=== PATIENT | male | born 1960 | race Caucasian/White ===

== ENCOUNTER 2019-12-18 12:52 | Inpatient (IN) | payer MEDICAID ==
[2019-12-18] MEDS ORDERED: Ondansetron 4 MG/2 ML SDV IVPUSH ONE (13:23)
[2019-12-18] MEDS ORDERED: HYDROmorphone 1 MG/ML Syringe IVPUSH ONE (13:23)
[2019-12-18] MEDS ORDERED: Sodium Chloride 0.9% 1,000 ML IV SCH (13:30)
[2019-12-18] MEDS ORDERED: fentaNYL 100 MCG/2 ML SDV IVPUSH ONE ×2 (13:53→15:00)
[2019-12-18] MEDS ORDERED: Sodium Chloride 0.9% 10 ML Syringe FLUSH ONE (13:55)
[2019-12-18] MEDS ORDERED: Iopamidol 612 MG/ML 500 ML Multipack Bottle IV ONE (13:55)
[2019-12-18] MEDS ORDERED: Sodium Chloride 0.9% 100 ML IV SCH (14:00)
--- NOTE | 2019-12-18 14:02 | EDM.PDOC ---
ED HPI GENERAL MEDICAL PROBLEM - General Chief Complaint: Abdominal Pain Stated Complaint: STOMACH PAIN Time Seen by Provider: 12/18/19 13:15 Source of Information: Reports: Patient History Limitations: Reports: No Limitations - History of Present Illness INITIAL COMMENTS - FREE TEXT/NARRATIVE: 59-year-old male without any previous medical problems, developed diffuse abdominal pain seemingly centered in the middle became very severe over the course of 1 to 2 hours. He now has a rigid abdomen, cannot tolerate any movement and has nausea but no vomiting. No previous history of abdominal surgeries. No recent trauma. Pain does not radiate to the back or chest. Onset: Gradual Duration: Hour(s): (5 hours) Location: Reports: Abdomen Associated Symptoms: Denies: Chest Pain, Cough, Loss of Appetite, Nausea/Vomiting, Shortness of Breath, Weakness Abdominal Pain Score (Numeric/FACES): 2 - Related Data Allergies Allergy/AdvReac Type Severity Reaction Status Date / Time No Known Allergies Allergy Verified 12/18/19 13:18 Home Meds: Home Meds atorvaSTATin [Lipitor] 20 mg PO BEDTIME 12/18/19 [History] Past Medical History Cardiovascular History: Reports: Afib, Stents - Infectious Disease History Infectious Disease History: Reports: Chicken Pox Social & Family History - Tobacco Use Tobacco Use Status *Q: Current Every Day Tobacco User Years of Tobacco use: 40 Packs/Tins Daily: 1 - Caffeine Use Caffeine Use: Reports: Coffee - Recreational Drug Use Recreational Drug Use: No ED ROS GENERAL - Review of Systems Review Of Systems: See Below Constitutional: Reports: Malaise, Decreased Appetite. Denies: Fever, Chills HEENT: Reports: No Symptoms Respiratory: Denies: Shortness of Breath, Pleuritic Chest Pain Cardiovascular: Denies: Chest Pain GI/Abdominal: Reports: Abdominal Pain, Nausea. Denies: Constipation, Diarrhea, Vomiting Skin: Reports: No Symptoms Neurological: Reports: No Symptoms Psychiatric: Reports: No Symptoms ED EXAM, GI/ABD - Physical Exam Exam: See Below Exam Limited By: No Limitations General Appearance: Alert, Moderate Distress Eyes: Bilateral: Normal Appearance Head: Atraumatic Respiratory/Chest: Lungs Clear Cardiovascular: Regular Rate, Rhythm GI/Abdominal Exam: Guarding, Rigid, Rebound, Tender, Other (Quiet bowel sounds) Extremities: Normal Inspection Neurological: Alert, Oriented Psychiatric: Anxious Skin Exam: Warm, Dry Course - Vital Signs Last Recorded V/S: Last Vital Signs Temp 97 F 12/19/19 07:17 Pulse 76 12/19/19 07:17 Resp 10 L 12/19/19 07:17 BP 128/64 12/19/19 07:17 Pulse Ox 94 L 12/19/19 07:21 - Orders/Labs/Meds Orders: Active Orders 24 hr Category Date Time Status CULTURE ANAEROBIC [RM] Routine Lab 12/18/19 16:48 Results CULTURE WOUND + SMEAR [RM] Routine Lab 12/18/19 16:48 Results Medication Orders Cyclobenzaprine HCl (Flexeril) 10 mg PO Q6H PRN PRN Reason: Muscle Spasm Hydromorphone HCl (Dilaudid Drug Safety Data Management Specialist 15 Mg In Ns 30 Ml) 0 mg IV ASDIRECTED PRN; Protocol PRN Reason: TABLE GAMES SHIFT MANAGER PAIN CONTROL Hydroxyzine HCl (Vistaril) 100 mg IM Q4H PRN PRN Reason: Pain Dextrose/Lactated Ringer's (Dextrose 5%-Lactated Ringers) 1,000 mls @ 200 mls/hr IV ASDIRECTED [facility] Last Admin: 12/18/19 23:44 Dose: 200 mls/hr Documented by: Infusion: 12/18/19 23:44 Dose: 200 mls/hr Documented by: Admin: 12/18/19 19:15 Dose: 200 mls/hr Documented by: CHANTALE Aztreonam 1 gm/ Sodium (Chloride) 50 mls @ 100 mls/hr IV Q8H [facility] Last Admin: 12/18/19 23:44 Dose: 100 mls/hr Documented by: OZ Meropenem 500 mg/ Sodium (Chloride) 50 mls @ 100 mls/hr IV Q6H [facility] Last Admin: 12/19/19 05:12 Dose: 100 mls/hr Documented by: Admin: 12/18/19 23:43 Dose: 100 mls/hr Documented by: OZ Dextrose/Lactated Ringer's (Dextrose 5%-Lactated Ringers) 1,000 mls @ 100 mls/hr IV ASDIRECTED [facility] Naloxone HCl (Narcan) 0.1 mg IV ASDIRECTED PRN PRN Reason: decreased respiratory rate Non-Formulary Medication (Tap Block, Pharmacy To Dose) 0 ml NERVRT ONCALL [facility] Pantoprazole Sodium (Protonix Iv) 40 mg IVPUSH Q24H [facility] Last Admin: 12/18/19 20:53 Dose: 40 mg Documented by: CHANTALE Tamsulosin HCl (Flomax) 0.4 mg PO BEDTIME [facility] Last Admin: 12/18/19 20:53 Dose: 0.4 mg Documented by: CHANTALE Labs: Laboratory Tests 12/18/19 12/18/19 12/18/19 Range/Units 13:34 13:34 13:34 WBC 8.8 (4.5-11.0) K/uL RBC 4.85 (4.30-5.90) M/uL Hgb 14.3 (12.0-15.0) g/dL Hct 44.4 (40.0-54.0) % MCV 92 (80-98) fL MCH 30 (27-31) pg MCHC 32 (32-36) % Plt Count 247 (150-400) K/uL Neut % (Auto) 89 H (36-66) % Lymph % (Auto) 6 L (24-44) % Cochran % (Auto) 4 (2-6) % Eos % (Auto) 0 L (2-4) % Baso % (Auto) 0 (0-1) % Sodium 136 L (140-148) mmol/L Potassium 4.0 (3.6-5.2) mmol/L Chloride 99 L (100-108) mmol/L Carbon Dioxide 27 (21-32) mmol/L Anion Gap 14.0 (5.0-14.0) mmol/L BUN 12 (7-18) mg/dL Creatinine 0.8 (0.8-1.3) mg/dL Est Cr Clr Drug Dosing 109.59 mL/min Estimated GFR (MDRD) > 60 (>60) Glucose 129 H (74-106) mg/dL Lactic Acid 1.1 (0.4-2.0) mmol/L Calcium 8.9 (8.5-10.1) mg/dL Total Bilirubin 0.8 (0.2-1.0) mg/dL AST 35 (15-37) U/L ALT 40 (12-78) U/L Alkaline Phosphatase 119 H (46-116) U/L Total Protein 7.4 (6.4-8.2) g/dL Albumin 3.7 (3.4-5.0) g/dL Globulin 3.7 H (2.3-3.5) g/dL Albumin/Globulin Ratio 1.0 L (1.2-2.2) Lipase 49 L (73-393) U/L SARS-CoV-2 RNA (HAIM) (NEGATIVE) 12/18/19 Range/Units 14:43 WBC (4.5-11.0) K/uL RBC (4.30-5.90) M/uL Hgb (12.0-15.0) g/dL Hct (40.0-54.0) % MCV (80-98) fL MCH (27-31) pg MCHC (32-36) % Plt Count (150-400) K/uL Neut % (Auto) (36-66) % Lymph % (Auto) (24-44) % Cochran % (Auto) (2-6) % Eos % (Auto) (2-4) % Baso % (Auto) (0-1) % Sodium (140-148) mmol/L Potassium (3.6-5.2) mmol/L Chloride (100-108) mmol/L Carbon Dioxide (21-32) mmol/L Anion Gap (5.0-14.0) mmol/L BUN (7-18) mg/dL Creatinine (0.8-1.3) mg/dL Est Cr Clr Drug Dosing mL/min Estimated GFR (MDRD) (>60) Glucose (74-106) mg/dL Lactic Acid (0.4-2.0) mmol/L Calcium (8.5-10.1) mg/dL Total Bilirubin (0.2-1.0) mg/dL AST (15-37) U/L ALT (12-78) U/L Alkaline Phosphatase (46-116) U/L Total Protein (6.4-8.2) g/dL Albumin (3.4-5.0) g/dL Globulin (2.3-3.5) g/dL Albumin/Globulin Ratio (1.2-2.2) Lipase (73-393) U/L SARS-CoV-2 RNA (HAIM) Negative (NEGATIVE) Meds: Medications Generic Name Dose Route Start Last Admin Trade Name Freq PRN Reason Stop Dose Admin Cyclobenzaprine HCl 10 mg 12/18/19 19:20 Flexeril PO Q6H PRN Muscle Spasm Hydromorphone HCl 0 mg 12/19/19 04:45 Dilaudid Drug Safety Data Management Specialist 15 Mg In Ns 30 Ml IV ASDIRECTED PRN TABLE G[employer] SHIFT MANAGER PAIN CONTROL Protocol Hydroxyzine HCl 100 mg 12/18/19 19:19 Vistaril IM Q4H PRN Pain Dextrose/Lactated Ringer's 1,000 mls @ 200 mls/hr 12/18/19 19:30 12/18/19 23:44 Dextrose 5%-Lactated Ringers IV 200 mls/hr ASDIRECTED [facility] Administration Aztreonam 1 gm/ Sodium 50 mls @ 100 mls/hr 12/18/19 23:30 12/18/19 23:44 Chloride IV 100 mls/hr Q8H [facility] Administration Meropenem 500 mg/ Sodium 50 mls @ 100 mls/hr 12/18/19 23:00 12/19/19 05:12 Chloride IV 100 mls/hr Q6H [facility] Administration Dextrose/Lactated Ringer's 1,000 mls @ 100 mls/hr 12/19/19 07:15 Dextrose 5%-Lactated Ringers IV ASDIRECTED [facility] Naloxone HCl 0.1 mg 12/19/19 05:00 Narcan IV ASDIRECTED PRN decreased respiratory rate Non-Formulary Medication 0 ml 12/21/19 07:15 Tap Block, Pharmacy To Dose NERVRT ONCALL [facility] Pantoprazole Sodium 40 mg 12/18/19 19:30 12/18/19 20:53 Protonix Iv IVPUSH 40 mg Q24H [facility] Administration Tamsulosin HCl 0.4 mg 12/18/19 21:00 12/18/19 20:53 Flomax PO 0.4 mg BEDTIME [facility] Administration Discontinued Medications Generic Name Dose Route Start Last Admin Trade Name Freq PRN Reason Stop Dose Admin Ampicillin Sodium/Sulbactam Sodium Confirm 12/18/19 17:48 12/18/19 19:26 Unasyn Administered 12/18/19 17:49 3 gm Dose Administration 3 gm .ROUTE .STK-MED ONE Ropivacaine 42 ml/ 0 ml 12/18/19 16:00 12/18/19 16:48 Dexamethasone 8 mg/ NERVRT 80 syringe Epinephrine HCl 0.4 mg/ Sodium ASDIRECTED [facility] Administration Chloride 35.6 ml Dexamethasone Confirm 12/18/19 15:39 Dexamethasone Administered 12/18/19 15:40 Dose 4 mg .ROUTE .STK-MED ONE Fentanyl 100 mcg 12/18/19 13:53 12/18/19 13:59 Sublimaze IVPUSH 12/18/19 13:54 100 mcg ONETIME ONE Administration Fentanyl 100 mcg 12/18/19 15:00 12/18/19 15:11 Sublimaze IVPUSH 12/18/19 15:01 100 mcg ONETIME ONE Administration Fentanyl Confirm 12/18/19 15:41 Sublimaze Administered 12/18/19 15:42 Dose 250 mcg .ROUTE .STK-MED ONE Fentanyl Confirm 12/18/19 16:24 Sublimaze Administered 12/18/19 16:25 Dose 250 mcg .ROUTE .STK-MED ONE Fentanyl Confirm 12/18/19 16:24 Sublimaze Administered 12/18/19 16:25 Dose 250 mcg .ROUTE .STK-MED ONE Glycopyrrolate Confirm 12/18/19 15:39 Robinul Administered 12/18/19 15:40 Dose 1 mg .ROUTE .STK-MED ONE Hydromorphone HCl 1 mg 12/18/19 13:23 12/18/19 13:29 Dilaudid IVPUSH 12/18/19 13:24 1 mg ONETIME ONE Administration Hydromorphone HCl 0 mg 12/18/19 15:33 12/18/19 19:15 Dilaudid Drug Safety Data Management Specialist 15 Mg In Ns 30 Ml IV 15 mg ASDIRECTED PRN Administration TABLE GAMES SHIFT MANAGER PAIN CONTROL Protocol Hydroxyzine HCl 100 mg 12/18/19 17:54 12/18/19 18:29 Vistaril IM 12/18/19 17:55 100 mg ONETIME ONE Administration Sodium Chloride 1,000 mls @ 1,000 mls/hr 12/18/19 13:30 12/18/19 13:35 Normal Saline IV 1,000 mls/hr ASDIRECTED [facility] Administration Sodium Chloride 100 mls @ 3 mls/sec 12/18/19 14:00 12/18/19 14:35 Normal Saline IV 3 mls/sec ASDIRECTED [facility] Administration Cefoxitin Sodium 2 gm/ Sodium 50 mls @ 100 mls/hr 12/18/19 15:09 12/18/19 15:37 Chloride IV 12/18/19 15:38 100 mls/hr ONETIME ONE Administration Ketamine HCl 50 mg/ Sodium 50 mls @ 23.97 mls/hr 12/18/19 16:00 Chloride IV ASDIRECTED [facility] 5 MCG/KG/MIN Aztreonam 1 gm/ Sodium 50 mls @ 100 mls/hr 12/18/19 15:30 12/18/19 15:38 Chloride IV 12/18/19 15:59 100 mls/hr ONETIME ONE Administration Lactated Ringer's 1,000 mls @ 250 mls/hr 12/18/19 15:45 12/18/19 15:38 Ringers, Lactated IV 250 mls/hr ASDIRECTED [facility] Administration Lactated Ringer's Confirm 12/18/19 16:44 Ringers, Lactated Administered 12/18/19 16:45 Dose 1,000 mls @ as directed .ROUTE .STK-MED ONE Sodium Chloride Confirm 12/18/19 18:26 Normal Saline Administered 12/18/19 18:27 Dose 10 mls @ as directed .ROUTE .STK-MED ONE Iopamidol 500 ml 12/18/19 13:55 12/18/19 14:35 Isovue-300 (61%) IV 12/18/19 13:56 110 ml ONETIME ONE Administration Ketamine HCl 40 mg 12/18/19 16:00 Ketalar IV ASDIRECTED [facility] Meropenem Confirm 12/18/19 15:59 12/18/19 19:28 Merrem Administered 12/18/19 16:00 2,500 mg Dose Administration 500 mg .ROUTE .STK-MED ONE Meropenem Confirm 12/18/19 16:51 Merrem Administered 12/18/19 16:52 Dose 1,500 mg .ROUTE .STK-MED ONE Meropenem Confirm 12/18/19 16:59 Merrem Administered 12/18/19 17:00 Dose 500 mg .ROUTE .STK-MED ONE Meropenem Confirm 12/18/19 18:26 Merrem Administered 12/18/19 18:27 Dose 500 mg .ROUTE .STK-MED ONE Naloxone HCl 0.1 mg 12/18/19 16:00 Narcan IV ASDIRECTED PRN decreased respiratory rate Neostigmine Methylsulfate Confirm 12/18/19 15:39 Neostigmine Administered 12/18/19 15:40 Dose 5 mg .ROUTE .STK-MED ONE Ondansetron HCl 4 mg 12/18/19 13:23 12/18/19 13:29 Zofran IVPUSH 12/18/19 13:24 4 mg ONETIME ONE Administration Ondansetron HCl Confirm 12/18/19 15:39 Zofran Administered 12/18/19 15:40 Dose 4 mg .ROUTE .STK-MED ONE Propofol Confirm 12/18/19 15:39 Diprivan 20 Ml Administered 12/18/19 15:40 Dose 200 mg .ROUTE .STK-MED ONE Rocuronium Keystone Confirm 12/18/19 15:39 Zemuron Administered 12/18/19 15:40 Dose 50 mg .ROUTE .STK-MED ONE Rocuronium Keystone Confirm 12/18/19 17:22 Zemuron Administered 12/18/19 17:23 Dose 50 mg .ROUTE .STK-MED ONE Sodium Chloride 10 ml 12/18/19 13:55 12/18/19 14:35 Saline Flush FLUSH 12/18/19 13:56 10 ml ONETIME ONE Administration Succinylcholine Chloride Confirm 12/18/19 15:39 Quelicin Administered 12/18/19 15:40 Dose 200 mg .ROUTE .STK-MED ONE - Re-Assessments/Exams Free Text/Narrative Re-Assessment/Exam: 12/18/19 14:01 IV was started, patient was given a full milligram of Dilaudid IV and normal saline started. CBC, CMP and lactic acid along with lipase were obtained and as soon as we have creatinine clearance, an IV contrast-enhanced abdominal CT will be obtained. An additional 100 mcg of fentanyl were needed pain control, CBC returned normal. 12/18/19 15:21 Lactic acid was 1.1, normal, CMP relatively normal. Covid test was negative so patient was prepared for surgery. CT confirmed free peritoneal air. Source of perforation was not clear. Departure - Departure Time of Disposition: 16:13 Disposition: Admitted As Inpatient 64 Clinical Impression: Peritoneal free air Abdominal pain Qualifiers: Abdominal location: generalized Qualified Code(s): R10.84 - Generalized abdominal pain - Discharge Information Sepsis Event Note (ED) - Evaluation Sepsis Screening Result: Possible Sepsis Risk
[2019-12-18] MEDS ORDERED: Dexamethasone 4 MG/ML SDV IVPUSH ONE (14:18)
[2019-12-18] MEDS ORDERED: cefOXitin 2 GM in Sodium Chloride 0.9% 50 ML IV ONE (15:09)
--- NOTE | 2019-12-18 15:13 | CT ---
Abdomen Pelvis w Cont CLINICAL HISTORY: Abdominal pain COMPARISON: None. TECHNIQUE: Axial tomographic images are obtained from the dome of the diaphragm to the pubic symphysis without IV contrast enhancement. No oral contrast was used. Auto dosage reduction and iterative reconstruction techniques employed. FINDINGS: There is a small amount of free intraperitoneal air epigastric region. There is diffuse small bowel thickening and wall enhancement in the left abdomen which appears to be jejunum and proximal ileum there is some mild prominence of gastric mucosa. Patient has a moderate-sized hiatal hernia. There is moderate diverticulosis. There is moderate thickening of the sigmoid colon and some stranding in the pericolic fat just and diverticulitis The lung bases are clear. The liver shows no mass or biliary dilatation. The gallbladder has a normal contour. The spleen has a normal size and shape. The pancreas shows no mass or inflammatory change. The adrenal glands appear normal bilaterally. The kidneys show some cysts bilaterally largest on the left measures 2.4 x 2.8 cm. The aorta shows diffuse atheromatous changes with mid to distal ectasia. Maximum AP diameter is 2.7 cm. There is no suspicious retroperitoneal adenopathy. IMPRESSION: There is a small amount of free intraperitoneal air stippled throughout the abdominal cavity. There is also some free fluid in the mesentery recesses Diffuse the small bowel enteritis Severe diverticulosis with thickening and. There is pericolic stranding in the proximal sigmoid consistent with diverticulitis. There are some small intraperitoneal air collections in the abdominal pelvic junction region which suggests the diverticular perforation.
[2019-12-18] MEDS ORDERED: HYDROmorphone/Normal Saline 15 MG/30 ML PCA IV PRN (15:33)
[2019-12-18] MEDS ORDERED: Dexamethasone 4 MG/ML SDV ONE (15:39)
[2019-12-18] MEDS ORDERED: Glycopyrrolate 0.2 MG/ML 5 ML MDV ONE (15:39)
[2019-12-18] MEDS ORDERED: Propofol 200 MG/20 ML SDV ONE (15:39)
[2019-12-18] MEDS ORDERED: Ondansetron 4 MG/2 ML SDV ONE (15:39)
[2019-12-18] MEDS ORDERED: Succinylcholine 200 MG/10 ML MDV ONE (15:39)
[2019-12-18] MEDS ORDERED: Neostigmine Methylsulfate 1 MG/ML 5 ML Syringe ONE (15:39)
[2019-12-18] MEDS ORDERED: Rocuronium 50 MG/5 ML Vial ONE ×2 (15:39→17:22)
[2019-12-18] MEDS ORDERED: fentaNYL 250 MCG/5 ML SDV ONE ×3 (15:41→16:24)
[2019-12-18] MEDS ORDERED: Lactated Ringers 1,000 ML IV SCH (15:45)
[2019-12-18] MEDS ORDERED: Meropenem 500 MG SDV ONE ×4 (15:59→18:26)
[2019-12-18] MEDS ORDERED: Ketamine 50 MG in Sodium Chloride 0.9% 49.5 ML IV SCH (16:00)
[2019-12-18] MEDS ORDERED: Ketamine 500 MG/5 ML MDV IV SCH (16:00)
[2019-12-18] MEDS ORDERED: Naloxone 0.4 MG/ML SDV IV PRN (16:00)
[2019-12-18] MEDS ORDERED: Lactated Ringers 1,000 ML ONE (16:44)
[2019-12-18] MEDS ORDERED: Ampicillin/Sulbactam Na 3 GM Vial ONE (17:48)
[2019-12-18] MEDS ORDERED: hydrOXYzine HCL 100 MG/2 ML SDV IM ONE (17:54)
[2019-12-18] MEDS ORDERED: Sodium Chloride 0.9% 10 ML ONE (18:26)
[2019-12-18] MEDS: Dextrose 5%-Lactated Ringers 1,000 ML IV SCH ×2 (19:15→23:44)
[2019-12-18] MEDS ORDERED: hydrOXYzine HCL 100 MG/2 ML SDV IM PRN (19:19)
[2019-12-18] MEDS: Pantoprazole 40 MG Vial IVPUSH SCH (20:53)
[2019-12-18] MEDS: Tamsulosin 0.4 MG Cap.ER PO SCH (20:53)
[2019-12-18] MEDS: Meropenem 500 MG in Sodium Chloride 0.9% 50 ML IV SCH (23:43)
[2019-12-19] MEDS ORDERED: HYDROmorphone/Normal Saline 15 MG/30 ML PCA IV PRN (04:45)
[2019-12-19] MEDS ORDERED: Naloxone 0.4 MG/ML SDV IV PRN (05:00)
[2019-12-19] MEDS: Meropenem 500 MG in Sodium Chloride 0.9% 50 ML IV SCH ×4 (05:12→23:13)
[2019-12-19] MEDS: Dextrose 5%-Lactated Ringers 1,000 ML IV SCH (13:55)
[2019-12-19] MEDS: Cyclobenzaprine 10 MG Tab PO PRN (14:59)
[2019-12-19] MEDS: Pantoprazole 40 MG Vial IVPUSH SCH (20:11)
[2019-12-19] MEDS: Tamsulosin 0.4 MG Cap.ER PO SCH (20:12)
[2019-12-20] MEDS: Dextrose 5%-Lactated Ringers 1,000 ML IV SCH ×2 (02:34→15:18)
[2019-12-20] MEDS: Cyclobenzaprine 10 MG Tab PO PRN ×3 (02:48→21:21)
[2019-12-20] MEDS: Meropenem 500 MG in Sodium Chloride 0.9% 50 ML IV SCH ×4 (05:56→23:29)
--- NOTE | 2019-12-20 07:52 | PN ---
CORRECTED REPORT DATE OF SERVICE: 12/19/2019 SUBJECTIVE: Patrick is postop day 1. He reports his pain is controlled. Vital signs have been stable. Oral intake was just chips. Urine output 2390, JESSE drain put out 60, 60, and 110 respectively, and NG put out 0 mL. He has no questions or concerns. REVIEW OF SYSTEMS: Remainder of review of systems negative for any pertinent positives and negatives. OBJECTIVE: GENERAL: Patrick Ellis is a 59-year-old male. He is sitting up in bed. NG in place. VITAL SIGNS: TPR 97, 76, 10; blood pressure is 128/64. HEENT: Negative. NECK: Supple. HEART: Regular rate and rhythm. LUNGS: Clear. ABDOMEN: Dressings dry and intact. JESSE drains x3 intact. EXTREMITIES: Without peripheral edema. ASSESSMENT: 1. Exploratory laparotomy with extensive peritoneal washout. a. Rectosigmoid resection with coloproctostomy. b. Drainage of pelvic abscess. c. Excision of pelvic peritoneal implant. d. Mobilization of the omentum into pelvis. POSTOPERATIVE DIAGNOSES: 1. Sigmoid colon diverticulitis with free perforation and diffuse feculent peritonitis. 2. Pelvic abscess. 3. Pelvic peritoneal implant, 2 mm. Date of surgery: 12/18/2019. Surgeon: Flex Pan MD. PLAN: 1. Decrease IV to 100 mL per hour. 2. Discontinue NG tube. 3. Schedule and have consent signed for delayed primary closure, 12/21/2019 at 0715. IV local TAP block. Flex Pan MD. N.p.o. after midnight. 4. Continue ambulation and use of incentive spirometer. 5. We will evaluate p.r.n. or in a.m. Shanta Cantrell PA-C /[id number] CHERI
--- NOTE | 2019-12-20 11:39 | PN ---
DATE OF SERVICE: 12/20/2019 SUBJECTIVE: Patrick states his pain has been controlled. Vital signs have been stable. He has ambulated a couple of times. Oral intake is only ice chips at 2:40. Urine output via Franz catheter of 2550. JESSE drains have put out 120 and 50 respectively, and he did have a bowel movement. REVIEW OF SYSTEMS: Remainder of review of systems is negative for any pertinent positives or negatives. OBJECTIVE: GENERAL: Patrick is a pleasant 59-year-old male. VITAL SIGNS: TPR is 98.3, 86, 18, and blood pressure 146/74. HEENT: Negative. NECK: Supple. HEART: Regular rate and rhythm. LUNGS: Clear. ABDOMEN: Dressing is dry and intact. JESSE drains as above. EXTREMITIES: Without peripheral edema. ASSESSMENT: Exploratory laparotomy with extensive peritoneal washout; 1. Rectosigmoid resection with coloproctostomy. 2. Drainage of pelvic abscess. 3. Excision of pelvic peritoneal implant. 4. Mobilization of the omentum into pelvis. POSTOPERATIVE DIAGNOSES: 1. Sigmoid colon diverticulitis with free perforation and diffuse feculent peritonitis. 2. Pelvic abscess. 3. Pelvic peritoneal implant, 2 mm. DATE OF SURGERY: 12/18/2019. SURGEON: Flex Pan MD. PLAN: 1. Continue to work on pulmonary incentive spirometer. 2. Ambulate 6 times short distances. 3. N.p.o. after midnight for delayed primary closure. Orders already written. 4. We will evaluate p.r.n. or in the a.m. Shanta Cantrell PA-C /[id number]
[2019-12-20] MEDS: Pantoprazole 40 MG Vial IVPUSH SCH (19:29)
[2019-12-20] MEDS: Tamsulosin 0.4 MG Cap.ER PO SCH (21:19)
[2019-12-21] MEDS: Dextrose 5%-Lactated Ringers 1,000 ML IV SCH ×3 (03:32→23:06)
[2019-12-21] MEDS: Meropenem 500 MG in Sodium Chloride 0.9% 50 ML IV SCH ×4 (05:03→23:02)
[2019-12-21] MEDS ORDERED: Lidocaine 1% with EPINEPHrine 1:100,000 50 ML MDV ONE (06:44)
[2019-12-21] MEDS ORDERED: Bupivacaine 0.5% 50 ML MDV ONE (06:44)
[2019-12-21] MEDS ORDERED: Meropenem 500 MG SDV ONE (06:44)
[2019-12-21] MEDS ORDERED: fentaNYL 100 MCG/2 ML SDV ONE (07:16)
[2019-12-21] MEDS ORDERED: Propofol 200 MG/20 ML SDV ONE ×2 (07:16→07:50)
[2019-12-21] MEDS ORDERED: Furosemide 40 MG/4 ML VIAL IV ONE (08:45)
[2019-12-21] MEDS: Docusate Sodium 100 MG Cap PO SCH ×2 (09:59→20:59)
[2019-12-21] MEDS: Bisacodyl 5 MG Tab PO SCH ×2 (10:00→21:00)
[2019-12-21] MEDS: Cyclobenzaprine 10 MG Tab PO PRN (12:49)
[2019-12-21] MEDS: Magnesium Hydroxide 400 MG/5 ML Susp 30 ML Cup PO SCH ×2 (12:50→21:00)
[2019-12-21] MEDS: Pantoprazole 40 MG Vial IVPUSH SCH (18:54)
[2019-12-21] MEDS: Tamsulosin 0.4 MG Cap.ER PO SCH (20:59)
[2019-12-22] MEDS: Meropenem 500 MG in Sodium Chloride 0.9% 50 ML IV SCH ×4 (05:01→23:05)
[2019-12-22] MEDS: Acetaminophen 500 MG Tab PO SCH ×3 (09:40→21:37)
[2019-12-22] MEDS: Magnesium Hydroxide 400 MG/5 ML Susp 30 ML Cup PO SCH ×2 (09:40→21:36)
[2019-12-22] MEDS: Docusate Sodium 100 MG Cap PO SCH ×2 (09:40→21:36)
[2019-12-22] MEDS: Bisacodyl 5 MG Tab PO SCH ×2 (09:41→21:36)
--- NOTE | 2019-12-22 11:00 | PN ---
DATE OF SERVICE: 12/21/2019 The patient has been afebrile with stable vital signs. Oxygenation remains good. The patient had no nausea. He underwent a closure of the abdominal incision and Franz catheter was then taken out. The patient is already on Flomax, so he will be able to urinate satisfactorily. We will continue with clear liquid diet today. Cultures were growing Strep viridans, which would be sensitive to meropenem and E coli which is sensitive to both meropenem and Azactam, so continue the present antibiotics. Advised to maximize activity and work with pulmonary toilet and begin some bowel stimulation today. Flex Pna MD /[id number]
--- NOTE | 2019-12-22 13:24 | PN ---
DATE OF SERVICE: 12/22/2019 The patient has been afebrile with stable vital signs. Urine output has been satisfactory. No bowel movement or flatus. Again, we will continue the bowel stimulation. If he does move his bowels, we will move up to a more regular diet and oral pain medication. Otherwise, maximize activity and work with pulmonary toilet. We will continue present antibiotics based on the sensitivities on the cultures. Flex Pan MD /[id number]
[2019-12-22] MEDS ORDERED: oxyCODONE 5 MG Tab PO PRN (13:40)
[2019-12-22] MEDS ORDERED: Pantoprazole 40 MG Tab.CR PO SCH (16:30)
[2019-12-22] MEDS: Tamsulosin 0.4 MG Cap.ER PO SCH (21:35)
[2019-12-23] MEDS: Acetaminophen 500 MG Tab PO SCH ×2 (02:54→08:02)
[2019-12-23] MEDS: Meropenem 500 MG in Sodium Chloride 0.9% 50 ML IV SCH (05:09)
[2019-12-23] MEDS: Docusate Sodium 100 MG Cap PO SCH (08:02)
[2019-12-23] MEDS: Bisacodyl 5 MG Tab PO SCH (08:03)
[2019-12-23] MEDS: Magnesium Hydroxide 400 MG/5 ML Susp 30 ML Cup PO SCH (08:03)
--- NOTE | 2019-12-23 13:28 | DISCH ---
ADMISSION DIAGNOSES: 1. Abdominal pain. 2. Hypercholesterolemia. 3. Atrial fibrillation with stents. 4. Nicotine addiction. DISCHARGE DIAGNOSES: 1. Exploratory laparotomy with extensive peritoneal washout. 2. Rectosigmoid resection with coloproctostomy. 3. Drainage of pelvic abscess. 4. Excision of peritoneal implant. 5. Mobilization of omentum into pelvis. POSTOPERATIVE DIAGNOSES: 1. Sigmoid colon diverticulitis with free perforation and diffuse feculent peritonitis. 2. Pelvic abscess. 3. Pelvic peritoneal implant, 2 mm. Date of surgery 12/18/2019. Surgeon: Flex Pan MD 1. Delayed primary closure for open abdominal incision, 12/20/2019. Surgeon: Flex Pan. HISTORY: Patrick Pickens is a 59-year-old male who developed diffuse abdominal pain centered in the middle, and within 2 hours, the pain became very severe. Abdomen was rigid, unable to tolerate any movement. He presented to the emergency room on 12/18/2019. After preoperative evaluation and discussion of possible risks and possible complications, he wished to proceed with surgical procedure. HOSPITAL COURSE: Patrick had his surgery on 12/18/2019. He had no operative complications. On postop day 1, his IV was decreased to 100 mL per hour. NG was discontinued. On postop day 2, he was encouraged to work with his incentive spirometer, remained on ice chips. On postop day 3, he had delayed primary closure, and Franz catheter was removed, and he was able to urinate without any difficulty. Started on a clear liquid diet. Cultures were growing strep viridans and E coli, and he continued on the antibiotics IV of meropenem and Azactam. Continued to run oximetry in the 88% to 90%, so he was on 1 to 1.5 L of O2. On postop day 4, intake and output were adequate. He did start having bowel movements, so was increased to a regular diet. He was not needing anything in the form of narcotics for pain. He continued to run that high 80s to 90s oximetry, which he noticed no difference in his breathing, which was thought to be normal for him. On 12/23/2019, Patrick was able to be discharged to home on oral antibiotics per culture and sensitivities of the peritoneal fluid. His activity was good. He was not short of breath despite low oximetry as stated. Pain was controlled with Tylenol. He was up ambulating, using his incentive spirometer, and vital signs remained stable. He was able to be discharged to home without any complications. PHYSICAL EXAMINATION: GENERAL: Patrick Pickens is a pleasant 59-year-old male. He is alert, oriented. VITAL SIGNS: TPR is 6 feet, weight 185 pounds. TPR at 0254 was 97.3, 92, 18, blood pressure 153/94. HEENT: Negative. NECK: Supple. HEART: Regular rate and rhythm. LUNGS: Clear. Abdomen: Aquacel dressings on. It is dry and intact. Abdominal binder is on. EXTREMITIES: Without peripheral edema. DISPOSITION: Discharged to home. CONDITION: Stable and improving. FOLLOWUP: He is to follow up with his primary care provider, Dr. Nicolas Johnson, around 01/01/2020 to have erna removed. HOME MEDICATIONS: 1. Augmentin 875 mg/125 one tablet b.i.d., #14. 2. Tylenol 1000 mg every 6 hours p.r.n. pain. 3. He is to resume his home medication of Lipitor 20 mg oral at bedtime. DIET: Usual diet as tolerated. Drink 8 to 10 glasses of water a day. ACTIVITY: No lifting greater than 10 pounds for 6 weeks. OTHER ACTIVITY: Walk 6 times daily inside your home. Driving: After discharge, may drive today. Other instructions: Walk 10 minutes for every 2 hours you are sitting in the car. Shower/bathing: May shower. Keep operative site clean and dry. Take off Aquacel dressing on , 12/26/2019, and cover stapled incision with gauze or leave open. Wear abdominal binder over incision. Special instruction: Notify provider if any fever, increased pain, swelling, redness, nausea, or vomiting. Use incentive spirometer 10 times every hour while awake. Wear abdominal binder for 6 weeks and then as tolerated. /[id number]
--- NOTE | 2019-12-30 13:07 | OR ---
DATE OF PROCEDURE: 12/18/2019 SURGEON: Flex Pan MD PREOPERATIVE DIAGNOSIS: Probable sigmoid colon diverticulitis with free perforation. POSTOPERATIVE DIAGNOSES: 1. Sigmoid colon diverticulitis with free perforation and diffuse feculent peritonitis. 2. Pelvic abscess. 3. Pelvic peritoneal implant. OPERATIVE PROCEDURES: Exploratory laparotomy with extensive peritoneal washout: 1. Rectosigmoid resection with coloproctostomy (24803). 2. Drainage of pelvic abscess (17350). 3. Excision of peritoneal pelvic implant (97767). 4. Mobilization of omentum into pelvis to limit adhesion formation between the small bowel and pelvic structures (87713). ANESTHESIA: General. EVENT SPECIALIST: Shanta Cantrell PA-C. INDICATIONS FOR PROCEDURE: A 59-year-old presenting with abrupt onset of abdominal pain this morning. Workup in the emergency room is highly suggestive of a complicated diverticulitis with there being free intraperitoneal air and large amount of inflammation within the pelvis associated with a radiologically evident diverticulitis. Plan is to proceed with exploratory laparotomy with probable rectosigmoid colon resection with or without colostomy depending on operative findings. Potential risks of procedure including bleeding, infection, possibility of needing at least temporary colostomy, possible leak from the anastomosis that might be undertaken requiring secondary colostomy were all reviewed, along with possibility of cardiopulmonary, hemorrhagic, or septic complications leading to were all reviewed, and the patient wishes to proceed. DETAILS OF PROCEDURE: The patient was taken to the operating room and placed in a supine position. After general endotracheal anesthesia was induced, the patient was converted to a lithotomy position. A Franz catheter was inserted and the abdomen prepped and draped. A midline incision from the umbilicus downward to the pelvis was made. This was eventually extended somewhat superiorly to allow more adequate washout of the upper abdomen. Upon entering the pelvis, there is a well-defined abscess, the cultures of this were obtained. This was somewhat sexton, purulent material. Apart from that, there was diffuse feculent peritonitis. This involved all of the pelvis and abdomen except for the right upper quadrant with the right upper quadrant above the transverse colon being the only spared area that did not have free feculent peritonitis initially. Then, the 2 ends of the bowel to be resected were divided with the BERNARDO stapler proximally and distally. These were fairly soft and appeared appropriate for subsequent anastomosis. Upon removal of the ongoing source of contamination, several liters of antibiotic-containing saline were used to wash out the entire abdomen. This occurred until all areas came back quite clear. One additional finding was that of a 2 mm white peritoneal implant located along the right pelvic sidewall. This was indeterminate in nature and was sent as a separate pathologic specimen. Of note, off the field, the resected colon and rectum were opened, and there was no evidence of any neoplastic changes, i.e. this appeared to be otherwise complicated diverticulitis. At this point, it appeared appropriate to proceed with a primary anastomosis as the 2 ends had relatively little in the way of stool present and were soft and well vascularized. The divided end of the sigmoid colon which at this point was roughly the mid portion of the sigmoid colon was opened and the anvil of a 28-mm EEA stapler passed into that and then this was re-stapled off with BERNARDO stapler which had been used to perform the initial resections. Through the rectum then, the main body of EEA stapler was brought up to the anvil, united with it, thus creating the coloproctostomy. Upon removal of the stapler, double donuts of mucosa were noted within it. With the pelvic being flooded with antibiotic-containing saline solution and the more proximal sigmoid colon being occluded, the colonoscope was inserted which showed an intact anastomosis with good blood supply bilaterally and no evidence of any air leakage. The coloproctostomy was then reinforced with some additional 3-0 Vicryl seromuscular stitch along with fibrin sealant. Two Ryder-Galindo drains were then placed, 1 on each side of the abdomen and placed down into the depths of the pelvis. A third Ryder-Galindo drain was then also placed on the left side up into the area around the splenic fossa which had initially been involved in some significant contamination as well to limit adhesion formation between the small bowel and the pelvis surfaces. The omentum was then mobilized down into the depths of the pelvis and fixed with some 3-0 Vicryl stitch. The midline fascia was then approximated with #2 Vicryl stitch. The skin and subcutaneous tissue were felt to be at high risk for wound infection if primary closure was undertaken, was therefore packed open for a planned delayed primary closure in roughly 2-1/2 days. The patient remained hemodynamically stable, was taken to the recovery room in satisfactory condition. Prior to closure, bilateral transversus abdominis plane blocks had also been placed. Physician bindery assistant, Shanta Cantrell, played an essential role in assisting in this case, helping to position the patient, retract structures as needed, as well as suturing and cutting sutures when indicated. Her presence improved patient safety and decreased the operative time. Flex Pan MD /[id number]
--- NOTE | 2019-12-31 12:32 | OR ---
DATE OF PROCEDURE: 12/21/2019 SURGEON: Flex Pan MD PREOPERATIVE DIAGNOSIS: Open abdominal incision. POSTOPERATIVE DIAGNOSIS: Open abdominal incision. OPERATIVE PROCEDURE: Delayed primary closure of open abdominal incision. ANESTHESIA: Local plus IV sedation. INDICATIONS FOR PROCEDURE: The patient is now 2-1/2 days status post a repair of perforated diverticulitis with diffuse feculent peritonitis. At the end of the procedure, the incision was felt to be high risk for wound infection if primary closure was undertaken and was therefore packed open for a planned delayed primary closure at this time. Potential risks including bleeding and infection were reviewed, and the patient wishes to proceed. DETAILS OF PROCEDURE: The patient was taken to the operating room, placed in a supine position, sitting somewhat upward to minimize aspiration risk. The abdominal dressing was then taken down after IV sedation was administered, and the wound was inspected and found to be clean. The wound was then prepped and draped. It was anesthetized with 1% lidocaine mixed with Marcaine, and using ultrasound guidance, bilateral transversus abdominis plane blocks were placed, incision was irrigated with meropenem-containing saline solution and closed with 2 layers of 3-0 and 4-0 Vicryl stitch deep and then erna for the skin. Dressing was applied. The patient was taken to the recovery room in satisfactory condition. Flex Pan MD /[id number]
== END 2019-12-23 10:30 | disposition home or self-care (01) | DRG 329 ==
LOC: JP.ED 12:52 → JP.SDS 15:27 → JP.ICU 19:20 → JP.MS 22:10
PROVIDERS: ADMIT Surgery; ATTEND Surgery
PROC: 0D1N0ZP Bypass Sigmoid Colon to Rectum, Open Approach (ICD-10-PCS; principal; 2019-12-18)
PROC: 0W9J0ZZ Drainage of Pelvic Cavity, Open Approach (ICD-10-PCS; principal; 2019-12-18)
PROC: 0DBW0ZZ Excision of Peritoneum, Open Approach (ICD-10-PCS; principal; 2019-12-18)
PROC: 0DBN0ZZ Excision of Sigmoid Colon, Open Approach (ICD-10-PCS; principal; 2019-12-18)
PROC: 0WQF0ZZ Repair Abdominal Wall, Open Approach (ICD-10-PCS; 2019-12-21)
DX: K57.20 Diverticulitis of large intestine with perforation and abscess without bleeding (principal); K65.1 Peritoneal abscess; E78.00 Pure hypercholesterolemia, unspecified; I48.91 Unspecified atrial fibrillation; F17.210 Nicotine dependence, cigarettes, uncomplicated; Z95.5 Presence of coronary angioplasty implant and graft
CPT/HCPCS: 36415; 51702; 74177; 74177-26; 80053; 83605; 83690; 83735; 84100; 85025; 85027; 87070; 87075; 87077; 87186; 87205; 88304; 88305; 88307; 94667; 94762; 96365; 96375; 96376; 99285; 99285-25; A9270-GY; C9113; J0171; J0295; J0330; J0694; J1100; J1170; J1940; J2185; J2405; J2704; J2710; J2795; J3010; J3410; J3490; J7030; J7050; J7120; J7121; Q9967; U0002